=== PATIENT | female | born 1980 ===

== ENCOUNTER 2019-05-10 14:58 | Outpatient (CLI) | payer OTHER ==
--- NOTE | 2019-05-10 16:25 | Mammography Report ---
BILATERAL DIGITAL DIAGNOSTIC MAMMOGRAM WITH CAD 05/10/2019 RIGHT COMPLETE BREAST ULTRASOUND INDICATION: Right breat lump felt by her doctor. F/U abnormal mammogram TECHNIQUE: Digital mammographic imaging was performed. Spot compression views were obtained. Complet e ultrasound of all four (4) quadrants was performed. This examination was interpreted with the benef it of Computer-Aided Detection (CAD) analysis. COMPARISON: None FINDINGS: Breast Density: The breasts are heterogeneously dense, which may obscure small masses. MAMMOGRAPHIC FINDINGS: There is no evidence of dominant mass, suspicious calcifications or architectu ral distortion in either breast. ULTRASOUND FINDINGS: Complete sonographic evaluation of all 4 quadrants and retroareolar region was p erformed. No mass, architectural distortion or suspicious calcifications. Mild retroareolar duct ec naresh. IMPRESSION: Negative mammogram and negative right breast ultrasound. Follow up recommendation: Unless otherwise clinically indicated, recommend patient return to routine screening mammography at age 39. BI-RADS Category 1: Negative. A "normal" or negative report should not discourage follow up or biopsy of a clinically significant f inding. A written summary of these findings will be mailed to the patient. The patient will be entered into a mammography reporting system which will generate a reminder letter for the patient's next appointmen t at the appropriate interval. According to the [employer], yearly mammograms are recommended starting at age 40 and continuing as long as a woman is in good health. Breast MRI is recommended for women with an oumar roximately 20-25% or greater lifetime risk of breast cancer, including women with a strong family his tory of breast or ovarian cancer and women who have been treated for Hodgkin's disease. Signer Name: Rayo Perrin MD Signed: 05/10/2019 4:20 PM Workstation Name: [id number]
== END 2019-05-10 14:59 | disposition home or self-care (01) ==
LOC: SPVWC 14:58
PROVIDERS: ATTEND Obstetrics & Gynecology
DX: N60.41 Mammary duct ectasia of right breast (principal); N63.11 Unspecified lump in the right breast, upper outer quadrant
CPT/HCPCS: 77066

== ENCOUNTER 2021-04-25 09:58 | Outpatient (CLI) | payer OTHER | END 2021-04-25 09:59 | disposition home or self-care (01) | LOC: SPVWC 09:58 | PROVIDERS: ATTEND Obstetrics & Gynecology | DX: Z12.31 Encounter for screening mammogram for malignant neoplasm of breast (principal) | CPT/HCPCS: 77067 ==

== ENCOUNTER 2021-05-22 14:08 | Outpatient (CLI) | payer OTHER ==
--- NOTE | 2021-05-22 15:01 | Mammography Report ---
DIGITAL DIAGNOSTIC MAMMOGRAM WITH CAD , 05/22/2021 CLINICAL INFORMATION / INDICATION: ABNORMAL MAMMO R92.8 TECHNIQUE: Digital right mammographic imaging was performed. Spot compression views were obtained. This examination was interpreted with the benefit of Computer-aided Detection analysis. COMPARISON: 04/25/2021 FINDINGS: Breast Density: The breasts are heterogeneously dense, which may obscure small masses. No dominant mass, suspicious calcifications or architectural distortion in the right breast. The focal asymmetry in the subareolar right breast completely resolves with spot compression and ther efore represented under compressed fibroglandular tissue. No further evaluation is necessary. IMPRESSION: No mammographic evidence of malignancy. Follow up recommendation: Routine yearly BI-RADS Category 2: Benign. A "normal" or negative report should not discourage follow up or biopsy of a clinically significant f inding. A written summary of these findings will be mailed to the patient. The patient will be entered into a mammography reporting system which will generate a reminder letter for the patient's next appointmen t at the appropriate interval. According to the [employer], yearly mammograms are recommended starting at age 40 and continuing as long as a woman is in good health. Breast MRI is recommended for women with an oumar roximately 20-25% or greater lifetime risk of breast cancer, including women with a strong family his tory of breast or ovarian cancer and women who have been treated for Hodgkin's disease. Signer Name: Sanjana Valenzuela MD Signed: 05/22/2021 2:56 PM Workstation Name: [id number]
== END 2021-05-22 14:09 | disposition home or self-care (01) ==
LOC: SPVWC 14:08
PROVIDERS: ATTEND Obstetrics & Gynecology
DX: R92.8 Other abnormal and inconclusive findings on diagnostic imaging of breast (principal); R92.2 Inconclusive mammogram; N64.89 Other specified disorders of breast